=== PATIENT | female | born 1990 | race Caucasian/White ===

== ENCOUNTER 2018-04-19 16:51 | Emergency (ER) | payer BC, OTHER ==
[2018-04-19] MEDS: KETOROLAC 30 MG INJ IV ×2 (17:36→18:10)
[2018-04-19] MEDS: SOD CHLORIDE 0.9% 1,000 ML IV (17:36)
[2018-04-19] MEDS: DEXAMETHASONE 10 MG/ML 1 ML INJ IV (17:36)
[2018-04-19] MEDS: SODIUM CHLORIDE 0.9% 1L BAG IV* (17:37)
[2018-04-19 17:50] LABS: ADD MAN DIFF? NO
[2018-04-19 17:54] LABS: BASOPHILS % 0.5 % (0.0-2.0); EOSINOPHILS # 0.1 10^3/ul (0.0-0.5); EOSINOPHILS % 1.1 % (0.0-7.0); HEMATOCRIT 42.3 % (37.0-47.0); LYMPHOCYTES # 1.7 10^3/ul (0.8-2.9); MEAN CORPUSCULAR HEMOGLOBIN 30.5 pg (29.0-33.0); MEAN CORPUSCULAR HGB CONC 33.1 g/dl (32.0-37.0); MEAN CORPUSCULAR VOLUME 92.2 fl (82.0-101.0); MEAN PLATELET VOLUME 10.9 fl (7.4-10.4); MONOCYTE # 0.5 10^3/ul (0.3-0.9); MONOCYTES % 5.3 % (0.0-11.0); NEUTROPHIL # 6.5 10^3/ul (1.6-7.5); NEUTROPHILS % 73.9 % (39.0-77.0); PLATELET COUNT 271 10^3/UL (140-415); RED BLOOD COUNT 4.59 10^6/ul (4.20-5.40); RED CELL DISTRIBUTION WIDTH 13.6 % (11.5-14.5)
[2018-04-19 17:54] LABS: WHITE BLOOD COUNT 8.8 10^3/ul (4.8-10.8)
[2018-04-19 18:12] LABS: ADD UMIC YES; UR ASCORBIC ACID NEGATIVE (NEGATIVE); UR BACTERIA FEW /HPF (NONE SEEN); UR BILIRUBIN (Dip) NEGATIVE (NEGATIVE); UR BLOOD (Dip) 3+ mg/dL (NEGATIVE); UR CLARITY SLIGHTLY CLOUDY (CLEAR); UR COLOR YELLOW (YELLOW); UR GLUCOSE (Dip) NEGATIVE (NEGATIVE); UR KETONES (Dip) NEGATIVE (NEGATIVE); UR LEUKOCYTE ESTERASE (Dip) 2+ Leu/ul (NEGATIVE); UR MUCUS FEW /HPF (NONE SEEN); UR NITRITE (Dip) NEGATIVE (NEGATIVE); UR RBC 5 /HPF (0-5); UR SPECIFIC GRAVITY (Dip) 1.026 (1.003-1.030); UR SQUAMOUS EPITHELIAL CELL MODERATE /HPF (FEW); UR TOTAL PROTEIN (Dip) NEGATIVE (NEGATIVE); UR UROBILINOGEN (Dip) NEGATIVE (NEGATIVE); UR WBC 8 /HPF (0-5)
[2018-04-19 18:13] LABS: INR 0.94; PROTIME 12.7 Sec (11.9-14.9)
[2018-04-19 18:14] LABS: LACTIC ACID 0.8 mmol/L (0.5-2.0)
[2018-04-19 18:15] LABS: ALANINE AMINOTRANSFERASE 11 IU/L (13-69); ALBUMIN 3.9 g/dl (3.3-4.9); ALBUMIN/GLOBULIN RATIO 1.25; ALKALINE PHOSPHATASE 56 IU/L (42-121); ANION GAP 13 (8-16); ASPARTATE AMINO TRANSFERASE 18 IU/L (15-46); BILIRUBIN,INDIRECT 0.3 mg/dl (0-1.1); BILIRUBIN,TOTAL 0.3 mg/dl (0.2-1.3); BLOOD UREA NITROGEN 16 mg/dl (7-20); CALCIUM 8.9 mg/dl (8.4-10.2); CARBON DIOXIDE 25 mmol/L (21-31); CHLORIDE 107 mmol/L (97-110); CREATININE 0.73 mg/dl (0.44-1.00); GLUCOSE 95 mg/dl (70-220); LIPASE 110 U/L (23-300); SODIUM 141 mmol/L (135-144)
[2018-04-19 18:26] LABS: TROPONIN-I < 0.010 ng/ml (0.000-0.120)
[2018-04-19] MEDS: CEFTRIAXONE 1 GM/50 ML (PMX) 50 ML IVPB (19:04)
[2018-04-19] MEDS: ACETAMINOPHEN 500 MG TAB PO (19:04)
[2018-04-19 19:57] LABS: LACTIC ACID 0.7 mmol/L (0.5-2.0)
[2018-04-19] MEDS: AZITHROMYCIN 250 MG TAB PO (20:00)
== END 2018-04-19 21:22 | disposition home or self-care (01) ==
LOC: E/R 21:22
DX: N30.00 Acute cystitis without hematuria (principal); J18.1 Lobar pneumonia, unspecified organism; M79.1 Myalgia; R00.0 Tachycardia, unspecified
CPT/HCPCS: 71045; 80053; 81001; 81025; 83605; 83690; 84484; 85025; 85610; 85730; 87040; 87086; 93005; 96374; 96375; 99285-25